=== PATIENT | male | born 1995 | race Two or more races ===

== ENCOUNTER 2019-01-03 00:40 | Emergency (ER) | payer SELFPAY ==
[~2019-01-03] VITALS: Ht 172.7 cm; Wt 75.7 kg
[2019-01-03 07:17] VITALS: BP 129/82
[2019-01-03] MEDS ORDERED: methylPREDNISolone SOD SUCC 125 MG/2 ML VL IM ONE (07:45)
[2019-01-03] MEDS ORDERED: KETOROLAC TROMETH 60MG/2ML VIAL IM ONE (07:45)
== END 2019-01-03 08:09 | disposition home or self-care (01) ==
LOC: ER 00:47
DX: M51.16 Intervertebral disc disorders with radiculopathy, lumbar region (principal); X50.1XXA Overexertion from prolonged static or awkward postures, initial encounter; Y93.89 Activity, other specified; Y99.8 Other external cause status; Y92.89 Other specified places as the place of occurrence of the external cause
CPT/HCPCS: 72100; 96372; 99283; J1885; J2930